=== PATIENT | female | born 1975 | race Caucasian/White ===

== ENCOUNTER 2021-10-21 02:49 | Emergency (ER) | payer MEDICARE, SELFPAY ==
[2021-10-21 02:49] VITALS: BP 123/78; PULSE 98; RESP 20; TEMP 36.4; O2SAT 100
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
[2021-10-21] MEDS: KETOROLAC 15 MG/ML VIAL (*BKC) IV PUSH (03:54)
[2021-10-21] MEDS: diazePAM INJ (*CRX) 10 MG/2 ML SYRINGE 5 MG IV PUSH (03:55)
--- NOTE | 2021-10-21 04:00 | PC.NURSE ---
Pt up to bedside commode with one assist
--- NOTE | 2021-10-21 05:19 | PC.NURSE ---
called [facility] to request transport. ETA [id number]
[2021-10-21 06:41] VITALS: BP 110/62; PULSE 91; RESP 18; O2SAT 100
== END 2021-10-21 07:11 | disposition home or self-care (01) ==
PROVIDERS: Emergency Provider Emergency Medicine
DX: M62.830 Muscle spasm of back (principal)
CPT/HCPCS: 96374; 96375; 99284; J1885; J3360

== ENCOUNTER 2023-10-01 08:11 | Emergency (ER) | payer MEDICARE, SELFPAY ==
[2023-10-01 08:28] VITALS: BP 127/91; PULSE 87; RESP 16; TEMP 36.9; O2SAT 99
--- NOTE | 2023-10-01 08:39 | ED.URI ---
HPI - URI/Sore Throat General Chief Complaint: Upper Respiratory Infection Stated Complaint: sore throat,hard to talk Time Seen by Provider: 10/01/23 08:32 Source: patient and RN notes reviewed Mode of arrival: ambulatory Limitations: no limitations History of Present Illness HPI Narrative: Patient presents today with a 5 day history of sore throat. Reports some mild congestion upon onset, but denies any additional symptoms to include cough, rhinorrhea, fever. She had a negative COVID-19 test 2 days ago. Denies any known sick contacts. She has tried Benadryl and Aleve with little relief and currently rates her pain 8/10. Related Data Allergies Allergy/AdvReac Type Severity Reaction Status Date / Time No Known Allergies Allergy Verified 10/01/23 08:36 Review of Systems Review of Systems: CONSTITUTIONAL: Denies body aches, fever, chills, or sweats. EYES: Denies visual changes, redness, or discharge. ENT: Denies rhinorrhea, or otalgia.+ congestion, sore throat CARDIOVASCULAR: Denies chest pain, palpitations, or edema. RESPIRATORY: Denies cough or dyspnea. GASTROINTESTINAL: Denies abdominal pain, nausea, vomiting, or diarrhea. GENITOURINARY: Denies dysuria or hematuria. SKIN: Denies rash, itching, or wounds. MUSCULOSKELETAL: Denies back pain, joint pain, or myalgia. NEUROLOGIC: Denies headache, numbness, tingling, or weakness. PSYCH: Denies depression or anxiety. PMFSH Past Medical History Medical History Adrenal crisis syndrome Anxiety Bipolar 1 disorder Chronic back pain Depression Fibromyalgia Hypercholesterolemia Hypothyroidism (Unknown) Laceration of adrenal gland Lyme disease Migraine Migraines SAH (subarachnoid hemorrhage) Sleep apnea Sternal fracture Tachycardia Trauma Social History Social History Smoking status: Never smoker Alcohol intake: current Comments At time of signature, I have reviewed and agree with nursing past medical, surgical, social and family history unless otherwise noted. Please see nursing chart for further information. There is no relevant family history pertinent to the presenting complaint Exam Narrative: GENERAL: Well-appearing, well-nourished, and in no acute distress. HEAD: Normocephalic, atraumatic. EYES: EOMI. No redness or drainage. Conjunctivae normal. ENT: Mucous membranes pink and moist. Nares clear. No rhinorrhea. TMs normal bilaterally. Throat mildly erythematous to the palatine arches without edema or exudate. Uvula midline. NECK: Normal AROM. Supple. No lymphadenopathy. CHEST: No respiratory distress. Clear to auscultation. HEART: Regular rate and rhythm. No murmur appreciated. EXTREMITIES: Normal range of motion. No edema. SKIN: Warm, dry, no rash. Capillary refill normal. Normal skin turgor. NEURO: No focal deficits. Alert and oriented x3. Gait steady. PSYCH: Normal affect. No signs of depression or anxiety. Course Course Level of Care: Express Care Visit Vital Signs Vital signs: Vital Signs Temperature 98.4 F 10/01/23 08:28 Pulse Rate 87 10/01/23 08:28 Respiratory Rate 16 10/01/23 08:28 Blood Pressure 127/91 H 10/01/23 08:28 Pulse Oximetry 99 10/01/23 08:28 Oxygen Delivery Room Air 10/01/23 08:28 Temperature 98.4 F 10/01/23 08:28 Pulse Rate 87 10/01/23 08:28 Respiratory Rate 16 10/01/23 08:28 Blood Pressure 127/91 H 10/01/23 08:28 Pulse Oximetry 99 10/01/23 08:28 Oxygen Delivery Room Air 10/01/23 08:28 Reviewed MDM - URI/Sore Throat MDM Narrative Medical decision making narrative: Rapid strep negative. Culture pending. Symptoms likely viral in etiology. Discussed [id number] medication use and duration of illness. No prescription medications indicated this time. Anticipatory guidance given. Differential Diagnosis Differential diagnosis: Likely up
[2023-10-01 08:41] LABS: EDSTREPNEGPOS1 Presumptive Negative
== END 2023-10-01 08:53 | disposition home or self-care (01) ==
PROVIDERS: Emergency Provider Nurse Practitioner
DX: J02.9 Acute pharyngitis, unspecified (principal); M79.7 Fibromyalgia; E78.00 Pure hypercholesterolemia, unspecified; E03.9 Hypothyroidism, unspecified
CPT/HCPCS: 87081; 87880; 99213; G0463